=== PATIENT | female | born 1965 | race Caucasian/White ===

== ENCOUNTER 2016-09-01 09:49 | Emergency (ER) | payer OTHER ==
[2016-09-01 09:58] VITALS: BP 122/64
--- NOTE | 2016-09-01 11:17 | UC ---
Complaint Female HPI - HPI Summary HPI Summary: complaint of burning pain with urination that started yesterday this morning it has worsenend increase in frequency and urgency of urination denies fever and chills denies back painand abdominla pin took some azo yesterday with relief - History Of Current Complaint Chief Complaint: UCGU Stated Complaint: URINARY ISSUE Time Seen by Provider: 09/01/16 11:06 Hx Obtained From: Patient Hx Last Menstrual Period: 02/11/16 - Allergies/Home Medications Allergies/Adverse Reactions: Allergies Allergy/AdvReac Type Severity Reaction Status Date / Time Clavulanic Acid Allergy Intermediate See Comment Verified 08/28/16 11:25 ENVIRONMENTAL/SEASONAL Allergy STUFFINESS Uncoded 08/28/16 11:25 HAYFEVER PMH/Surg Hx/FS Hx/Imm Hx Previously Healthy: Yes Endocrine History Of: Denies: Diabetes, Thyroid Disease Cardiovascular History Of: Denies: Cardiac Disorders, Hypertension, Pacemaker/ICD Respiratory History Of: Denies: COPD, Asthma GI/ History Of: Denies: Ulcer, Renal Disease Neurological History Of: Reports: Migraine - ONCE MONTHLY Cancer History Of: Denies: Breast Cancer - Surgical History Surgical History: Yes Surgery Procedure, Year, and Place: MYOMECTOMY [place] 2006. RIGHT Shoulder surgery 04/2012. Right hip replacement 2013, LEFT ROTATOR CUFF SURGERY 01/2016 - Family History Known Family History: Positive: Hypertension Negative: Cardiac Disease, Diabetes - Social History Occupation: Employed Full-time Lives: With Family Alcohol Use: Rare Alcohol Amount: One glass of wine Substance Use Type: None Smoking Status (MU): Former Smoker Type: Cigarettes Have You Smoked in the Last Year: No When Did the Patient Quit Smoking/Using Tobacco: Quit Review of Systems Constitutional: Negative Skin: Negative Eyes: Negative ENT: Negative Respiratory: Negative Cardiovascular: Negative Gastrointestinal: Negative Genitourinary: Dysuria, Frequency, Urgency Motor: Negative Neurovascular: Negative Musculoskeletal: Negative Neurological: Negative Psychological: Negative All Other Systems Reviewed And Are Negative: Yes Physical Exam Triage Information Reviewed: Yes Appearance: No Pain Distress, Well-Nourished Vital Signs: Initial Vital Signs Temp 97.9 F 09/01/16 09:54 Pulse 96 09/01/16 09:54 Resp 18 09/01/16 09:54 BP 122/64 09/01/16 09:54 Pulse Ox 100 09/01/16 09:54 Vital Signs Reviewed: Yes Eyes: Positive: Conjunctiva Clear ENT: Positive: Pharynx normal, TMs normal Neck: Positive: Supple Respiratory: Positive: Lungs clear, Normal breath sounds, No respiratory distress, No accessory muscle use Cardiovascular: Positive: RRR, No Murmur, Pulses Normal Abdomen Description: Positive: Nontender, No Organomegaly, Soft. Negative: CVA Tenderness (R), CVA Tenderness (L), Distended, Guarding Bowel Sounds: Positive: Present Musculoskeletal Exam: Normal Neurological Exam: Normal Psychological Exam: Normal Skin Exam: Normal Complaint Female Dx - Differential Dx/Diagnosis Differential Diagnosis/HQI/PQRI: Ureteral Stone, Urinary Tract Infection Provider Diagnoses: UTI Discharge - Discharge Plan Condition: Stable Disposition: HOME Prescriptions: Nitrofurantoin Monohyd Macro [Macrobid] 100 mg PO BID #10 cap Phenazopyridine TAB* [Pyridium 100 mg TAB*] 100 mg PO TID #6 tab Patient Education Materials: Urinary Tract Infection in Women (ED) Referrals: Lamin Gonzales MD [Primary Care Provider] - Additional Instructions: Please start antibiotic and pyridium as directed Increase fluids and rest Take acetaminophen or ibuprofen for fever or pain Please review your discharge instructions. If your symptoms do not improve please call your primary care provider or return to urgent care.
== END 2016-09-01 11:27 | disposition home or self-care (01) ==
LOC: UCEAST 09:49
DX: N39.0 Urinary tract infection, site not specified (principal); B96.89 Other specified bacterial agents as the cause of diseases classified elsewhere
CPT/HCPCS: 81003; 87086; 99212; G0463

== ENCOUNTER 2016-09-15 10:38 | Emergency (ER) | payer OTHER ==
[2016-09-15 10:52] VITALS: BP 88/57
--- NOTE | 2016-09-15 11:33 | UC ---
Complaint Female HPI - HPI Summary HPI Summary: ONSET OF URINARY PAIN, FREQUENCY AND URGENCY LAST NIGHT 9PM. TX WITH MACROBID FOR UTI 2 WEEKS AGO. SX RESOLVED WITH TX BUT RETURNED LAST NIGHT. NO FEVER, NAUSEA OR FLANK PAIN. TOOK AZO THIS MORNING. OF NOTE THE URINE CX FROM 09/01 DID NOT GROW ANY SIGNIFICANT BACTERIA. - History Of Current Complaint Chief Complaint: UCGU Stated Complaint: URINARY ISSUE Time Seen by Provider: 09/15/16 11:19 Hx Obtained From: Patient Hx Last Menstrual Period: 02/11/16 Onset/Duration: Sudden Onset, Lasting Hours, Still Present Timing: Constant Severity Initially: Moderate Severity Currently: Moderate Pain Intensity: 0 Pain Scale Used: 0-10 Numeric Character: Burning Aggravating Factor(s): Urination Alleviating Factor(s): Nothing Associated Signs And Symptoms: Negative: Fever, Back Pain, Vaginal Bleeding/ Discharge, Vaginal Discharge - Allergies/Home Medications Allergies/Adverse Reactions: Allergies Allergy/AdvReac Type Severity Reaction Status Date / Time Clavulanic Acid Allergy Intermediate See Comment Verified 09/15/16 10:53 ENVIRONMENTAL/SEASONAL Allergy STUFFINESS Uncoded 09/15/16 10:53 HAYFEVER PMH/Surg Hx/FS Hx/Imm Hx Previously Healthy: Yes - Surgical History Surgical History: Yes Surgery Procedure, Year, and Place: MYOMECTOMY [place] 2006. RIGHT Shoulder surgery 04/2012. Right hip replacement 2013, LEFT ROTATOR CUFF SURGERY 01/2016 - Family History Known Family History: Positive: Hypertension Negative: Cardiac Disease, Diabetes - Social History Alcohol Use: Rare Alcohol Amount: One glass of wine Substance Use Type: None Smoking Status (MU): Former Smoker Type: Cigarettes Have You Smoked in the Last Year: No When Did the Patient Quit Smoking/Using Tobacco: Quit Review of Systems Constitutional: Negative Respiratory: Negative Cardiovascular: Negative Gastrointestinal: Abdominal Pain Genitourinary: Dysuria, Frequency, Urgency All Other Systems Reviewed And Are Negative: Yes Physical Exam Triage Information Reviewed: Yes Appearance: Well-Appearing, No Pain Distress, Well-Nourished Vital Signs: Initial Vital Signs Temp 98.9 F 09/15/16 10:49 Pulse 70 09/15/16 10:49 Resp 18 09/15/16 10:49 BP 88/57 09/15/16 10:49 Pulse Ox 99 09/15/16 10:49 Vital Signs Reviewed: Yes Eyes: Positive: Conjunctiva Clear ENT: Positive: Hearing grossly normal Neck: Positive: Supple Respiratory: Positive: No respiratory distress, No accessory muscle use Cardiovascular: Positive: Pulses Normal Abdomen Description: Positive: Soft, Other: - SUPRAPUBIC TTP. Negative: CVA Tenderness (R), CVA Tenderness (L), Distended Musculoskeletal: Positive: No Edema Neurological: Positive: Alert Psychological: Positive: Age Appropriate Behavior Skin: Negative: rashes Complaint Female Dx - Course Course Of Treatment: URINE DIP NOT DONE DUE TO TREATMENT WITH AZO. WILL SEND FOR CX. - Differential Dx/Diagnosis Provider Diagnoses: CYSTITIS Discharge - Discharge Plan Condition: Stable Disposition: HOME Prescriptions: Sulfamethox/Trimethoprim DS* [Bactrim DS 800/160 TAB*] 1 tab PO BID #10 tab Patient Education Materials: Urinary Tract Infection in Women (ED) Referrals: Lamin Gonzales MD [Primary Care Provider] - If Needed Additional Instructions: WILL TREAT YOUR SYMPTOMS WITH BACTRIM AND SEND YOUR URINE FOR REPEAT CULTURE. WE WILL CALL YOU IF WE NEED TO MODIFY YOUR TREATMENT. STAY HYDRATED.
--- NOTE | 2016-09-17 07:40 | UC ---
Progress - Progress Note Progress Note: Urine Cx No growth. Patient Rx Bactrim. Nurse to call patient and inform of no growth and to F/U with PMD if Sx continue or worse. Patient can stop taking the Bactrim.
== END 2016-09-15 11:40 | disposition home or self-care (01) ==
LOC: UCEAST 10:38
DX: N30.90 Cystitis, unspecified without hematuria (principal); Z87.891 Personal history of nicotine dependence
CPT/HCPCS: 87086; 87798; 99212; G0463

== ENCOUNTER 2017-03-25 17:26 | Emergency (ER) | payer OTHER ==
[2017-03-25 18:08] VITALS: BP 110/67
--- NOTE | 2017-03-25 18:43 | UC ---
Complaint Female HPI - HPI Summary HPI Summary: Pain burning frequency urgency no fevers chills nausea vomiting or back pain - History Of Current Complaint Hx Obtained From: Patient Hx Last Menstrual Period: 02/11/16 ?: No Onset/Duration: Sudden Onset, Lasting Days - 1, Still Present Timing: Constant Severity Initially: Moderate Severity Currently: Moderate Pain Scale Used: 0-10 Numeric Character: Burning Aggravating Factor(s): Urination Alleviating Factor(s): Nothing Associated Signs And Symptoms: Positive: Negative <Julieth Jauregui - Last Filed: 03/25/17 18:43> <Lisa Gold - Last Filed: 03/25/17 21:27> - History Of Current Complaint Chief Complaint: UCGI Stated Complaint: PAIN WITH URINATION Time Seen by Provider: 03/25/17 18:37 - Allergies/Home Medications Allergies/Adverse Reactions: Allergies Allergy/AdvReac Type Severity Reaction Status Date / Time Clavulanic Acid Allergy Intermediate See Comment Verified 03/25/17 18:08 ENVIRONMENTAL/SEASONAL Allergy STUFFINESS Uncoded 03/25/17 18:08 HAYFEVER PMH/Surg Hx/FS Hx/Imm Hx Previously Healthy: No - osteoarthritis Neurological History: Migraine - Surgical History Surgical History: Yes Surgery Procedure, Year, and Place: MYOMECTOMY [place] 2006. RIGHT Shoulder surgery 04/2012. Right hip replacement 2013, LEFT ROTATOR CUFF SURGERY 01/2016 - Family History Known Family History: Positive: Hypertension Negative: Cardiac Disease, Diabetes - Social History Occupation: Works From/At Home Lives: With Family Alcohol Use: Weekly Alcohol Amount: 1-2 drinks weekly Substance Use Type: None Substance Use Comment - Amount & Last Used: Medicinal Marijuana Smoking Status (MU): Former Smoker Type: Cigarettes Have You Smoked in the Last Year: No When Did the Patient Quit Smoking/Using Tobacco: Quit Household Exposure Type: Cigarettes - Immunization History Most Recent Influenza Vaccination: UTD <Julieth Jauregui - Last Filed: 03/25/17 18:43> Review of Systems Constitutional: Negative Skin: Negative Eyes: Negative ENT: Negative Respiratory: Negative Cardiovascular: Negative Gastrointestinal: Negative Genitourinary: Dysuria, Frequency, Urgency Motor: Negative Neurovascular: Negative Musculoskeletal: Negative Neurological: Negative Psychological: Negative Is Patient Immunocompromised?: No All Other Systems Reviewed And Are Negative: Yes <Julieth Jauregui - Last Filed: 03/25/17 18:43> Physical Exam Triage Information Reviewed: Yes Appearance: Well-Appearing, No Pain Distress, Well-Nourished Vital Signs: Initial Vital Signs Temp 97.6 F 03/25/17 18:04 Pulse 76 03/25/17 18:04 Resp 18 03/25/17 18:04 BP 110/67 03/25/17 18:04 Pulse Ox 100 03/25/17 18:04 Vital Signs Reviewed: Yes Eye Exam: Normal Eyes: Positive: Conjunctiva Clear ENT Exam: Normal ENT: Positive: Normal ENT inspection, Hearing grossly normal, Pharynx normal. Negative: Nasal congestion, Nasal drainage, TMs normal, Tonsillar swelling, Trismus, Muffled voice, Hoarse voice, Dental tenderness, Sinus tenderness Dental Exam: Normal Neck exam: Normal Neck: Positive: Supple, Nontender, No Lymphadenopathy Respiratory Exam: Normal Respiratory: Positive: Chest non-tender, Lungs clear, Normal breath sounds, No respiratory distress, No accessory muscle use Cardiovascular Exam: Normal Cardiovascular: Positive: RRR, No Murmur, Pulses Normal, Brisk Capillary Refill Abdominal Exam: Normal Abdomen Description: Positive: Nontender, No Organomegaly, Soft. Negative: CVA Tenderness (R), CVA Tenderness (L) Bowel Sounds: Positive: Present Musculoskeletal Exam: Normal Musculoskeletal: Positive: Strength Intact, ROM Intact, No Edema Neurological Exam: Normal Neurological: Positive: Alert, Muscle Tone Normal Psychological Exam: Normal Psychological: Negative: Normal Response To Family Skin Exam: Normal <Julieth Jauregui - Last Filed: 03/25/17 18:43> Vital Signs: Initial Vital Signs Temp 97.6 F 03/25/17 18:04 Pulse 76 03/25/17 18:04 Resp 18 03/25/17 18:04 BP 110/67 03/25/17 18:04 Pulse Ox 100 03/25/17 18:04 <Lisa Gold - Last Filed: 03/25/17 21:27> Complaint Female Dx - Course Course Of Treatment: Increase fluids keflex, increase fluids follow with Dr. Valdez prn - Differential Dx/Diagnosis Provider Diagnoses: UTI <Julieth Jauregui - Last Filed: 03/25/17 18:43> Discharge <Julieth Jauregui - Last Filed: 03/25/17 18:43> <Lisa Gold - Last Filed: 03/25/17 21:27> - Discharge Plan Condition: Stable Disposition: HOME Prescriptions: Cephalexin CAP* [Keflex CAP*] 500 mg PO BID #20 cap Patient Education Materials: Urinary Tract Infection in Women (ED) Referrals: Lamin Valdez MD [Primary Care Provider] - If Needed Attestation Statement User Type: Provider - I was available for consult. This patient was seen by the ABA. The patient was not presented to, seen by, or examined by me. -Karla <Lisa Gold - Last Filed: 03/25/17 21:27>
== END 2017-03-25 18:57 | disposition home or self-care (01) ==
LOC: UCEAST 17:26
DX: N39.0 Urinary tract infection, site not specified (principal); Z72.89 Other problems related to lifestyle; Z87.891 Personal history of nicotine dependence; F12.90 Cannabis use, unspecified, uncomplicated
CPT/HCPCS: 81003; 87077; 87086; 87186; 99212; G0463

== ENCOUNTER 2017-04-28 09:26 | Emergency (ER) | payer OTHER ==
--- NOTE | 2017-04-28 11:18 | RAD ---
INDICATION: Right knee pain COMPARISON: None TECHNIQUE: AP, lateral, tunnel, and sunrise views were obtained. FINDINGS: The bony structures, joint spaces, and soft tissues are normal for age. IMPRESSION: NO ACUTE BONY FINDINGS.
[2017-04-28 11:50] VITALS: BP 98/57
--- NOTE | 2017-04-28 19:01 | UC ---
Amanda Kiran Julia, scribed for Jesus Alberto Beck MD on 04/28/17 at 1043 . Lower Extremity/Ankle HPI - HPI Summary HPI Summary: This patient is a 51 year old F presenting to [facility] with a chief complaint of slightly lateral R knee pain at joint line since twisting it last evening while playing basketball. Patient reports mild swelling. Patient denies falling. The patient rates the pain 3/10 while sitting and a 10/10 while walking. Patient has history of OA and hip replacement surgery in R hip. - History of Current Complaint Chief Complaint: UCLowerExtremity Stated Complaint: KNEE INJURY Time Seen by Provider: 04/28/17 10:25 Hx Obtained From: Patient Hx Last Menstrual Period: 02/11/16 Onset/Duration: Sudden Onset, Lasting Hours Pain Intensity: 3 - 10 while walking Pain Scale Used: 0-10 Numeric - Allergies/Home Medications Allergies/Adverse Reactions: Allergies Allergy/AdvReac Type Severity Reaction Status Date / Time Clavulanic Acid Allergy Intermediate See Comment Verified 04/28/17 10:16 ENVIRONMENTAL/SEASONAL Allergy STUFFINESS Uncoded 04/28/17 10:16 HAYFEVER PMH/Surg Hx/FS Hx/Imm Hx Previously Healthy: Yes - Surgical History Surgical History: Yes Surgery Procedure, Year, and Place: MYOMECTOMY [place] 2006. RIGHT Shoulder surgery 04/2012. 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 Alcohol Use: Rare Alcohol Amount: 1-2 drinks weekly Substance Use Type: None Substance Use Comment - Amount & Last Used: Medicinal Marijuana Smoking Status (MU): Former Smoker Type: Cigarettes Have You Smoked in the Last Year: No When Did the Patient Quit Smoking/Using Tobacco: Quit Household Exposure Type: Cigarettes - Immunization History Most Recent Influenza Vaccination: UTD Review of Systems Constitutional: Negative Musculoskeletal: Edema - mild at R knee, Other: - R knee pain All Other Systems Reviewed And Are Negative: Yes Physical Exam Triage Information Reviewed: Yes Appearance: Well-Appearing, No Pain Distress Vital Signs: Initial Vital Signs Temp 96.4 F 04/28/17 10:11 Pulse 67 04/28/17 10:11 Resp 18 04/28/17 10:11 BP 97/63 04/28/17 10:11 Vital Signs Reviewed: Yes Eyes: Positive: Conjunctiva Clear Dental Exam: Normal Neck exam: Normal Respiratory Exam: Normal Respiratory: Positive: Chest non-tender, Lungs clear, Normal breath sounds Cardiovascular Exam: Normal Cardiovascular: Positive: RRR, No Murmur Abdomen Description: Positive: Nontender Musculoskeletal: Positive: ROM Intact, Other: - mild effusion right knee, no redness, no bruising. Patellar tendon is non tender. No clicking to the knee, no popliteal tenderness. Neurological: Positive: Alert, Muscle Tone Normal Psychological: Positive: Normal Response To Family, Age Appropriate Behavior Skin Exam: Normal Diagnostics - Radiology R Knee XR Radiology Interpretation Completed By: Radiologist - NO ACUTE BONY FINDINGS. ED Physician has reviewed this report. Lower Extremity Course/Dx - Course Course Of Treatment: 51 yr old with internal derangement knee. Plan DC home knee immoblizer, crutches she already has. referral to ortho. - Differential Dx/Diagnosis Provider Diagnoses: internal derangement of knee Discharge - Discharge Plan Condition: Good Disposition: HOME Prescriptions: Ibuprofen TAB* [Motrin TAB* 600 MG] 600 mg PO Q6H PRN #20 tab PRN Reason: Pain Patient Education Materials: Knee Pain (ED) Referrals: Lamin Gonzales MD [Primary Care Provider] - Maninder Sandoval MD [Medical Doctor] - The documentation as recorded by the Amanda cheng Julia accurately reflects the service I personally performed and the decisions made by , Jesus Alberto Beck MD.
== END 2017-04-28 11:49 | disposition home or self-care (01) ==
LOC: UCEAST 09:26
DX: M23.91 Unspecified internal derangement of right knee (principal); Z87.891 Personal history of nicotine dependence; X50.1XXA Overexertion from prolonged static or awkward postures, initial encounter; Y93.67 Activity, basketball; Y92.9 Unspecified place or not applicable
CPT/HCPCS: 99212; G0463

== ENCOUNTER 2017-06-19 08:48 | Emergency (ER) | payer OTHER ==
[2017-06-19 09:00] VITALS: BP 95/57
--- NOTE | 2017-06-19 09:35 | UC ---
Respiratory Complaint HPI - HPI Summary HPI Summary: 51 yo WF c/o cough with productive sputum x 2 weeks associated with worsening maxillary sinus pains - History of Current Complaint Chief Complaint: UCRespiratory Stated Complaint: SINUS ISSUE Time Seen by Provider: 06/19/17 09:28 Hx Obtained From: Patient Hx Last Menstrual Period: 02/11/16 Onset/Duration: Lasting Days, Lasting Weeks Severity Initially: Moderate Severity Currently: Moderate Pain Intensity: 3 - Allergies/Home Medications Allergies/Adverse Reactions: Allergies Allergy/AdvReac Type Severity Reaction Status Date / Time amoxicillin [From Augmentin] Allergy liver Verified 06/19/17 08:56 failure clavulanic acid Allergy liver Verified 06/19/17 08:56 [From Augmentin] failure ENVIRONMENTAL/SEASONAL Allergy STUFFINESS Uncoded 04/28/17 10:16 HAYFEVER PMH/Surg Hx/FS Hx/Imm Hx Previously Healthy: Yes - Surgical History Surgical History: Yes Surgery Procedure, Year, and Place: MYOMECTOMY [place] 2006. RIGHT Shoulder surgery 04/2012. Right hip replacement 2013, LEFT ROTATOR CUFF SURGERY 01/2016 - Family History Known Family History: Positive: Hypertension Negative: Cardiac Disease, Diabetes - Social History Alcohol Use: Rare Alcohol Amount: 1-2 drinks weekly Substance Use Type: None Substance Use Comment - Amount & Last Used: Medicinal Marijuana Smoking Status (MU): Former Smoker Type: Cigarettes Have You Smoked in the Last Year: No When Did the Patient Quit Smoking/Using Tobacco: Quit Household Exposure Type: Cigarettes - Immunization History Most Recent Influenza Vaccination: UTD Review of Systems Constitutional: Negative Skin: Negative Eyes: Negative ENT: Negative, Sinus Congestion, Sinus Pain/Tenderness Respiratory: Cough Cardiovascular: Negative Gastrointestinal: Negative Genitourinary: Negative Motor: Negative Neurovascular: Negative Musculoskeletal: Negative Neurological: Negative Psychological: Negative All Other Systems Reviewed And Are Negative: Yes Physical Exam Triage Information Reviewed: Yes Vital Signs: Initial Vital Signs Temp 35.9 C 06/19/17 08:57 Pulse 83 06/19/17 08:57 Resp 15 06/19/17 08:57 BP 95/57 06/19/17 08:57 Pulse Ox 100 06/19/17 08:57 Eye Exam: Normal ENT Exam: Normal ENT: Positive: Sinus tenderness Dental Exam: Normal Neck exam: Normal Neck: Positive: 1 Respiratory Exam: Normal Respiratory: Positive: Rhonchi Cardiovascular Exam: Normal Abdominal Exam: Normal Musculoskeletal Exam: Normal Neurological Exam: Normal Psychological Exam: Normal Skin Exam: Normal UC Diagnostic Evaluation - Laboratory O2 Sat by Pulse Oximetry: 100 Respiratory Course/Dx - Differential Dx/Diagnosis Provider Diagnoses: acute bronchitis. sinusitis Discharge - Discharge Plan Condition: Stable Disposition: HOME Prescriptions: Azithromycin TAB* [Zithromax TAB (Z-EZRA) 250 mg #6 tabs] 2 tab PO .TODAY, THEN 1 DAILY #1 ezra Patient Education Materials: Acute Bronchitis (ED) Referrals: Lamin Gonzales MD [Primary Care Provider] - Additional Instructions: take meds as directed, f/u w/ PCP if symptoms persist
== END 2017-06-19 09:35 | disposition home or self-care (01) ==
LOC: UCEAST 08:48
DX: J20.9 Acute bronchitis, unspecified (principal); J32.9 Chronic sinusitis, unspecified; Z87.891 Personal history of nicotine dependence; Z88.3 Allergy status to other anti-infective agents
CPT/HCPCS: 99212; G0463

== ENCOUNTER 2018-06-27 12:56 | Emergency (ER) | payer OTHER ==
[2018-06-27 13:03] VITALS: BP 111/53
--- NOTE | 2018-06-27 13:17 | UC ---
Throat Pain/Nasal [place] HPI - HPI Summary HPI Summary: patient has had on and off throat pain for the past 2 weeks, only on the left side - History of Current Complaint Chief Complaint: UCRespiratory Stated Complaint: throat pain Time Seen by Provider: 06/27/18 13:02 Hx Obtained From: Patient Hx Last Menstrual Period: 02/11/16 ?: No Onset/Duration: Sudden Onset, Lasting Weeks Severity: Mild Pain Intensity: 3 Cough: Nonproductive Associated Signs & Symptoms: Positive: Dysphagia - Allergies/Home Medications Allergies/Adverse Reactions: Allergies Allergy/AdvReac Type Severity Reaction Status Date / Time amoxicillin [From Augmentin] Allergy liver Verified 06/27/18 13:03 failure clavulanic acid Allergy liver Verified 06/27/18 13:03 [From Augmentin] failure ENVIRONMENTAL/SEASONAL Allergy STUFFINESS Uncoded 06/27/18 13:03 HAYFEVER PMH/Surg Hx/FS Hx/Imm Hx Previously Healthy: Yes - Surgical History Surgical History: Yes Surgery Procedure, Year, and Place: MYOMECTOMY [place] 2006. RIGHT Shoulder surgery 04/2012. Right hip replacement 2013, LEFT ROTATOR CUFF SURGERY 01/2016 - Family History Known Family History: Positive: Hypertension Negative: Cardiac Disease, Diabetes - Social History Alcohol Use: Weekly Alcohol Amount: 3/week Substance Use Type: None Substance Use Comment - Amount & Last Used: Medicinal Marijuana Smoking Status (MU): Former Smoker Type: Cigarettes Have You Smoked in the Last Year: No When Did the Patient Quit Smoking/Using Tobacco: Quit Household Exposure Type: Cigarettes - Immunization History Most Recent Influenza Vaccination: UTD Review of Systems All Other Systems Reviewed And Are Negative: Yes Constitutional: Positive: Negative Skin: Positive: Negative Eyes: Positive: Negative ENT: Positive: Sore Throat Respiratory: Positive: Negative Cardiovascular: Positive: Negative Gastrointestinal: Positive: Negative Genitourinary: Positive: Negative Motor: Positive: Negative Neurovascular: Positive: Negative Musculoskeletal: Positive: Negative Neurological: Positive: Negative Psychological: Positive: Negative Is Patient Immunocompromised?: No Physical Exam Triage Information Reviewed: Yes Appearance: Well-Appearing, Well-Nourished, Pain Distress Vital Signs: Initial Vital Signs Temp 97.1 F 06/27/18 13:00 Pulse 107 06/27/18 13:00 Resp 18 06/27/18 13:00 BP 111/53 06/27/18 13:00 Pulse Ox 100 06/27/18 13:00 Vital Signs Reviewed: Yes Eye Exam: Normal ENT: Positive: Pharyngeal erythema, Tonsillar swelling - with noted large tonsilolith Dental Exam: Normal Neck exam: Normal Respiratory Exam: Normal Cardiovascular Exam: Normal Abdominal Exam: Normal Bowel Sounds: Positive: Present Musculoskeletal Exam: Normal Neurological Exam: Normal Psychological Exam: Normal Skin Exam: Normal Throat Pain/Nasal Course/Dx - Course Course Of Treatment: hx obtained, exam performed ,meds reviewed, removed tonsil stone with tongue depressor with immediate relief. - Differential Dx/Diagnosis Differential Diagnosis/HQI/PQRI: Influenza, Laryngitis, Otitis Media, Pharyngitis, Sinusitis, Tonsillitis, URI Provider Diagnosis: Tonsil stone Discharge - Sign-Out/Discharge Documenting (check all that apply): Patient Departure All imaging exams completed and their final reports reviewed: No Studies - Discharge Plan Condition: Stable Disposition: HOME Referrals: Lamin Gonzales MD [Primary Care Provider] - Additional Instructions: 1. gargle with salt water a few times to day to clean out the pocket of the tonsils - Billing Disposition and Condition Condition: STABLE Disposition: Home - Attestation Statements Provider Attestation: I was available for consult. This patient was seen by the ABA. The patient was not presented to, seen by, or examined by me. -Karla
== END 2018-06-27 13:17 | disposition home or self-care (01) ==
LOC: UCEAST 12:56
DX: J35.8 Other chronic diseases of tonsils and adenoids (principal); Z88.0 Allergy status to penicillin; Z91.09 Other allergy status, other than to drugs and biological substances; Z87.891 Personal history of nicotine dependence
CPT/HCPCS: 99211; G0463

== ENCOUNTER 2019-04-13 10:49 | Observation (INO) | payer OTHER ==
--- NOTE | 2019-04-06 15:55 | HP ---
HISTORY AND PHYSICAL: DATE OF ADMISSION: 04/13/19 PROVIDER: Dr. Glenis Javier.* (DICTATED BY GUSTAVO SIMENTAL) HISTORY OF PRESENT ILLNESS: Ms. Sequeira is a 53-year-old female with 4 years of left buttock and groin pain. She reports that walking more than 2 blocks and prolonged standing increase her pain. She has failed conservative management with anti- inflammatories, heat, ice, rest and home exercise program without relief. She would like to proceed with left total hip arthroplasty at this time. PAST MEDICAL HISTORY: 1. Raynaud's disease. 2. Microscopic colitis. 3. Osteoarthritis. PAST SURGICAL HISTORY: 1. Right total hip arthroplasty. 2. Rotator cuff repair bilaterally. MEDICATIONS: 1. Diclofenac sodium 1%. 2. Tramadol 50 mg. 3. Comig. 4. Ibuprofen. 5. Estrogen juice weekly. ALLERGIES: 1. AUGMENTIN causes drug-induced hepatitis. 2. CLINDAMYCIN. FAMILY HISTORY: Maternal - cancer and hypertension. SOCIAL HISTORY: The patient lives with her spouse. 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 No tobacco or recreational drug use. She drinks about 3 alcoholic beverages per week consisting of 1 glass of wine per night. Normally, she is very active, right-hand dominant. REVIEW OF SYSTEMS: General: The patient denies any fevers, chills, or night sweats. No known anesthesia problems. HEENT: The patient denies any headaches or lightheadedness. Cardiothoracic: The patient denies any chest pain or heart palpitations. Pulmonary: Denies any shortness of breath with exertion or chronic cough. GI: The patient denies any nausea, vomiting, diarrhea or constipation. : The patient denies any nocturia, urinary frequency or urgency. MSK: The patient denies any chronic or intermittent back pain. Neuro: The patient denies any paresthesias, numbness or seizures. Integument: The patient denies any abrasions, lesions, rashes, lumps, or open sores. PHYSICAL EXAMINATION GENERAL: The patient is alert and oriented x3 with appropriate mood and affect , appropriately dressed and hygiene. HEENT: Normocephalic, atraumatic. Hearing and vision are grossly intact. PULMONARY: Lungs are clear to auscultation bilaterally with no wheezes, rales or rhonchi. CARDIO: Regular rate and rhythm. Normal S1 and S2. No appreciable S3 or S4. No murmurs, rubs or gallops. MSK: Left lower extremity: Inspection of the left hip reveals no erythema or ecchymosis. Skin is warm, dry and intact. Range of motion of the left hip is 100 degrees of flexion, 0 degrees of internal rotation with pain and 40 degrees of external rotation with pain. Active hip flexion and abduction although some groin pain. Distally, no edema, varicosities, or hyperreflexia. She has full sensation intact to light touch in all nerve distributions and a 2+ palpable dorsalis pedis pulse. ASSESSMENT: Left hip end-stage osteoarthritis. PLAN: To the OR for a left total hip arthroplasty to be performed by Dr. Glenis Javier on 04/13/19. The risks and complications were reviewed with the patient and a signed understanding was obtained. She will follow up 10 to 14 days postoperatively for suture removal. GUSTAVO SIMENTAL [id number]/[facility] #: [id number] [place]
[~2019-04-13 10:49] MED LIST: Acetaminophen TAB* 325 MG PO ONE; Buffered Lidocaine 1% SYRIN* 1 ML/SYRINGE INTRADERM ONE; HYDROmorphone INJ1* 1 MG/ML SYRINGE IV PRN; Lactated Ringers 1000 ML Bag* 1,000 ML IV SCH; Midazolam* 1 MG/ML 2 ML VIAL (2 MG) ONE; Naloxone* 0.4 MG/ML 1 ML VIAL IV PRN; Tranexamic Acid 1,000 MG in NS 0.9% 50 ML IV ONE; VANCOMYCIN 1000 MG IV ONE; celeCOXIB CAP* 200 MG PO ONE; fentaNYL* 50 MCG/ML 2 ML VIAL (100 MCG VIAL) ONE
[2019-04-13] MEDS ORDERED: Acetaminophen TAB* 325 MG ONE (11:35)
[2019-04-13] MEDS ORDERED: celeCOXIB CAP* 200 MG ONE (11:35)
[2019-04-13] MEDS ORDERED: Dexamethasone IV* 4 MG/ML 1 ML (4 MG) ONE (13:24)
[2019-04-13] MEDS ORDERED: EPHEDrine (Pressors)* 50 MG/ML VIAL ONE (13:24)
[2019-04-13] MEDS ORDERED: Ondansetron INJ* 2 MG/ML VIAL ONE (13:24)
[2019-04-13] MEDS ORDERED: Bupivacaine 0.5% SDV PF* 30ML VIAL ONE (13:24)
[2019-04-13] MEDS ORDERED: Propofol* 500 MG/50 ML BTL ONE (13:24)
[2019-04-13] MEDS ORDERED: Midazolam* 1 MG/ML 2 ML VIAL (2 MG) ONE (13:41)
[2019-04-13] MEDS ORDERED: Phenylephrine 40 MCG/ML SYRINGE ONE (14:01)
[2019-04-13] MEDS ORDERED: Propofol* 10 MG/ML 20 ML BTL ONE ×2 (14:32)
[2019-04-13] MEDS ORDERED: Ondansetron TAB* 4 MG PO PRN (15:33)
[2019-04-13] MEDS ORDERED: Morphine INJ* 2 MG/ML 1 ML SYRINGE (TWO MG - NEW SYRINGE VERSION) IV PRN (15:33)
[2019-04-13] MEDS ORDERED: Polyethylene Glycol 3350* 17 GM PACKET PO PRN (15:33)
[2019-04-13] MEDS ORDERED: oxyCODONE TAB* 5 MG TAB PO PRN (15:33)
[2019-04-13] MEDS ORDERED: Ondansetron ODT TAB* 4 MG PO PRN (15:33)
[2019-04-13] MEDS ORDERED: traMADol TAB* 50 MG PO PRN (15:33)
[2019-04-13] MEDS ORDERED: diPHENhydraMINE IV* 50 MG/ML 1 ml VIAL (BENADRYL) IV PRN (15:33)
[2019-04-13] MEDS ORDERED: Ondansetron INJ* 2 MG/ML VIAL IV PRN (15:33)
[2019-04-13] MEDS ORDERED: Magnesium Hydroxide LIQ* 30 ML UDC PO PRN (15:33)
[2019-04-13] MEDS ORDERED: diPHENhydraMINE PO* 25 MG PO PRN (15:33)
[2019-04-13] MEDS ORDERED: Lactated Ringers 1000 ML Bag* 1,000 ML IV SCH (16:00)
[2019-04-13] MEDS ORDERED: HYDROmorphone INJ1* 1 MG/ML SYRINGE ONE (16:03)
[2019-04-13] MEDS: oxyCODONE/Acetamin 5/325 MG* TAB PO PRN (17:53)
[2019-04-13] MEDS: Cyclobenzaprine TAB* 10 MG PO PRN (18:42)
--- NOTE | 2019-04-13 19:05 | OP ---
Operative Report - Blank - Operative Report Date of Operation: 04/13/19 Note: XIANG MAYO 1965 Date Of Surgery: 04/13/19 Glenis Javier MD Mysql Dba: Wiley CHEN did help throughout the procedure with preparation of the hip, wound retraction, manipulation of the hip, and wound closure. Anesthesiologist: Dr. 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 Hardware used: This is uncemented Ata total hip arthroplasty hardware for the femur a size 3 accolade II with 127 neck angle femoral component, for the acetabulum a size 46C trident II tritanium cluster hole shell with one 15mm screw, for the insert a size 32C insert, and for the femoral head a size 32 +4 V40 femoral head. Brief history/Indication: XIANG MAYO was known in clinic and had a history of severe left hip pain. She failed conservative treatment with anti-inflammatories , pain pills, intra-articular injections and physical therapy. She elected to undergo left total hip arthroplasty due to continued pain and decreased quality of life. Radiographs showed severe end stage osteoarthritis of the hip with bone on bone contact. Informed consent was obtained from the patient. She understood the risks of surgery included but were not limited to: bleeding, infection, damage to nearby structures, intraoperative fracture, nerve palsy, failure of the hardware, early loosening, stiffness or loss of motion, dislocation, leg length discrepancy, anesthesia complications, stroke, heart attack, blood clot and . She wished to proceed. Intra-Operative findings: Intraoperatively the patient was noted to have severe loss of cartilage of the acetabulum and femoral head. She had a severely dysplastic shallow acetabulum with minimal posterior and superio wall. Description of the Procedure: XIANG MAYO was identified in the preanesthesia unit. Her left hip was marked as the correct operative side. Informed consent was signed and placed in the chart. The patient was taken to the operating room and placed under anesthesia without complication. A devi catheter was placed. The patient was placed on the peg board with all bony prominences well padded. The left lower extremity was prepped and draped in the usual sterile fashion. Preoperative time-out was made to correctly identify the patient, side and site. Appropriate intraoperative antibiotics were given within one hour of incision. A standard posterior incision was made and carried sharply down to the lateral fascia. A new 10 blade was used to make an incision in the fascia in line with the skin incision. A charnley retractor was placed. The piriformis and conjoined tendons were identified and elevated off the posterolateral femur using electrocautery. These were tagged with number 5 Ethibond. Next electrocautery was used to make a posterolateral capsular flap and this was tagged with number 5 Ethibonds. The hip was carefully dislocated. Lesser trochanter to the center of the femoral head was measured at 52 mm. The oscillating saw was used to make the femoral neck cut. The femoral head was carefully removed. The femur was retracted anteriorly and the acetabular retractors were placed. Long-handled knife was used to sharply remove any remaining labrum from the acetabular rim. The acetabulum was sequentially reamed up to a size 46. A bleeding subchondral bone bed was obtained. A trial liner was placed and had excellent fit and stability. A 46C cup with 15mm screw was placed and had excellent stability with appropriate anteversion and abduction angle. A size 32C polyethylene liner was impacted into the acetabular shell. The liner was checked for stability and was stable. Next attention was turned to preparation of the femoral canal. A canal finder was used to enter the proximal femur. The femoral canal was sequentially broached up to a size 3 femoral broach trial. A trial neck and 32 + 4 trial femoral head was chosen. Lesser trochanter to center of the femoral head measurement was satisfactory. The hip was reduced and taken through a range of motion. The hip was stable in all positions with good soft tissue tension and appropriate leg lengths. The hip was dislocated and all trials were removed. The final implant chosen was a accolade II size 3 stem. This stem was impacted into the femoral canal without difficulty. The stem was stable with appropriate anteversion. The femoral head chosen was a 32 + 4 head. The head was impacted onto the femoral neck without difficulty. The final lesser trochanter to center of the femoral head measurement was satisfactory. The hip was reduced and taken through a range of motion. The hip was stable in all positions with good soft tissue tension and appropriate leg lengths. The hip was copiously irrigated with sterile saline. The previously tagged capsule and tendons were repaired to the posterolateral femur through two trochanteric drill holes. The lateral fascia layer was closed using number 1 vicryls. The rest of the incision was closed in a layered fashion using 0 and 2-0 vicryls. The skin was closed using 3-0 monocryl suture and Dermabond. Sterile adaptic, 4x4s and paper tape was used to cover the incision. The patients anesthesia was reversed without difficulty. She was taken to the PACU in stable condition. Intended weight-bearing will be as tolerated with posterior hip precautions.
[2019-04-13] MEDS: ceFAZolin 1 GM ADVAN(*) 1 GM in NS 0.9% 50 ML* 50 ML IVPB SCH (21:22)
[2019-04-13] MEDS: Acetaminophen TAB* 325 MG PO SCH (21:25)
[2019-04-13] MEDS: Magnesium Hydroxide LIQ* 30 ML UDC PO SCH (21:27)
[2019-04-13] MEDS: Docusate CAP* 100 MG PO SCH (21:27)
[2019-04-14] MEDS: oxyCODONE/Acetamin 5/325 MG* TAB PO PRN ×3 (05:03→17:01)
[2019-04-14] MEDS: ceFAZolin 1 GM ADVAN(*) 1 GM in NS 0.9% 50 ML* 50 ML IVPB SCH ×2 (05:04→12:36)
[2019-04-14] MEDS: Acetaminophen TAB* 325 MG PO SCH ×2 (05:14→13:15)
[2019-04-14 05:23] LABS: Hematocrit 28 % (35-47); Hemoglobin 9.7 g/dL (12.0-16.0); Mean Platelet Volume 7.5 fL (7.4-10.4); Platelet Count 246 10^3/uL (150-450)
[2019-04-14 05:41] LABS: BUN/Creatinine Ratio 23.9 (8-20); Calcium 9.1 mg/dL (8.6-10.3); EGFR Non-African American 91.7 (>60); Potassium 4.1 mmol/L (3.5-5.0)
[2019-04-14] MEDS ORDERED: Vitamin THERAPEUTIC TAB PO SCH (09:00)
[2019-04-14] MEDS ORDERED: NS 0.9% 500 ML* 500 ML IV ONE (09:00)
[2019-04-14] MEDS ORDERED: Apixaban* 2.5 MG TAB PO SCH (09:00)
[2019-04-14] MEDS: Docusate CAP* 100 MG PO SCH (09:01)
[2019-04-14] MEDS: Magnesium Hydroxide LIQ* 30 ML UDC PO SCH (09:01)
[2019-04-14] MEDS: Cyclobenzaprine TAB* 10 MG PO PRN (10:20)
--- NOTE | 2019-04-14 10:30 | DS ---
Orthopedic Discharge Summary - Discharge Summary Date of Admission:04/13/19 Date of Discharge: 04/14/19 Date of Surgery: 04/13/19 Attending Orthopedic Provider: Dr Javier Pre-operative Diagnosis: left hip osteoarthritis Operative Procedure: left total hip replacement Disposition of Patient: home with outpatient physical therapy, no home nursing Condition of Patient: stable History: XIANG MAYO is a 53 year old F with years of increasingly severe left hip pain. Patient has failed conservative management and has elected to undergo a left total hip replacement Hospital Course: XIANG was admitted to [facility] on 04/13/19. Patient underwent a left total hip replacement without complication followed by a brief recovery in PACU and transfer to the Short Stay Surgical Unit in stable condition. physical therapy and occupational therapy also participated in this patients care. Post-op day 1: Patient seen at bedside. SHe feels well without CP , SOB, dizziness or nausea. BP low, NS 500 ml bolus started. Patient was alert and in no acute distress. Dressing was clean, dry and intact. Operative extremity dorsiflexion and plantarflexion intact, sensation intact to light touch distally, DP2+. Prior to DC: dressing was changed, incision was clean, dry and intact. Patient was deemed to be medically and orthopedically stable for discharge. Physical therapy goals were met. Home Medications Medication Instructions Recorded Confirmed Type ZOLMitriptan Zomig 2.5 mg PO DAILY PRN 11/19/17 04/13/19 History Estradiol VAG CM (NF) [Estrace VAG 1 mg VAGINAL .2XPER WEEK 03/29/19 04/13/19 History CM (NF)] Acetaminophen TAB* [Tylenol TAB*] 975 mg PO Q8HR tab 04/14/19 Rx Apixaban* [Eliquis*] 2.5 mg PO BID #60 tab 04/14/19 Rx Docusate CAP* [Colace Cap*] 100 mg PO BID PRN #90 cap 04/14/19 Rx oxyCODONE/Acetamin 5/325 MG* 2 tab PO Q4H PRN #70 tab MDD 10 04/14/19 Rx [Percocet 5/325 TAB*] Discharge Instructions following Orthopedic Surgery: Activity: * Weight Bearing as tolerated * Continue physical therapy and occupational therapy exercises as shown * Start outpatient physical therapy Hip replacements: Continue Hip Precautions- do not cross legs or bend greater than 90 degrees/squat Wound care: * OK to shower on post-op day 3, no bathing, swimming, or submerging wound. * Use gentle soap, pat dry. Cover with gauze, EMMA wrap or tape. Call Orthopedic office for: * Increased drainage * Redness * Increased pain * Fever Go to ER with shortness of breath or chest pain. Diet: * Regular diet * Increase fluids and fiber to prevent constipation. * Continue to use stool softeners, call office if no bowel motion within 48 hours. Medications See Home Medication List in your packet for medications that you should take after discharge. DVT Prophylaxis: Will increase bleeding tendency Eliquis Dosin.5 mg, 1 tab every 12 hours x 30 days Pain Control: Percocet Dosin/325 mg 1tab for moderate and 2 tabs for severe pain by mouth every 4 hours as needed. Maximum of 10 tabs per day. Hold for sedation and wean off as soon as pain allows Please note that Percocet contains Tylenol (acetaminophen). Maximum daily dose of Tylenol is 4000 mg from all sources. Antibiotics are required prior to any dental work. FOLLOW UP: Follow up with [Yaya] Within 10-14 days, call for appointment Please call our office with any questions or concerns ([phone]) [facility] [place]
[2019-04-14 17:00] VITALS: BP 110/68
[2019-04-15] MEDS ORDERED: Bisacodyl SUPP* 10 MG SUPP PR PRN (15:33)
== END 2019-04-14 17:28 | disposition home or self-care (01) ==
LOC: OR 10:49 → SSU 15:33 → INTOOBSV 15:33
PROVIDERS: ADMIT Orthopaedic Surgery Adult Reconstructive Orthopaedic Surgery; ATTEND Orthopaedic Surgery Adult Reconstructive Orthopaedic Surgery
DX: M16.12 Unilateral primary osteoarthritis, left hip (principal); M25.552 Pain in left hip; I73.00 Raynaud's syndrome without gangrene; K52.839 Microscopic colitis, unspecified; Z79.899 Other long term (current) drug therapy; Z87.891 Personal history of nicotine dependence
CPT/HCPCS: 36415; 72170; 80048; 85014; 85018; 85049; 86850; 86900; 86901; 96374; 96375; A9270-GY; C1713; C1776; G0378; J0690; J1100; J1170; J2250; J2270; J2405; J2704; J3010; J3370; J3490

== ENCOUNTER 2019-05-28 16:54 | Emergency (ER) | payer OTHER ==
--- OUTSIDE RECORDS SUMMARY | 2019-05-28 17:47 | XMS REPORT | Continuity of Care Document ---
:1965 External Reference #:[id number] Author Name Glenis Javier M.D. (transmitted by agent of provider Mary Dillard) Address [address] [place] [address] Problems Active Problems Provider Date Localized, primary osteoarthritis of the pelvic Glenis Javier M.D. Onset: 04/2018 region and thigh Social History Type Date Description Comments Sex Unknown ETOH Use Occasionally consumes alcohol Tobacco Use Start: Unknown End: Patient is a former smoker Unknown Smoking Status Reviewed: 05/17/19 Patient is a former smoker Exercise Type/Frequency Exercises regularly Allergies, Adverse Reactions, Alerts Active Allergies Reaction Severity Comments Date Augmentin Severe liver failure 08/05/2018 Medications Active Medications SIG Qnty Indications Ordering Date Provider Percocet 1 by mouth every 60tabs Glenis Javier, 04/30/2019 5-325mg Tablets 8 hours as needed M.D. pain Cyclobenzaprine HCL take 1 tab by 90tabs Glenis Javier, 04/15/2019 10mg mouth 2-3 times a M.D. Tablets day as needed Diclofenac Sodium Apply A Small Unknown 1% Gel Amount To Affected Area S Four Times A Day Tramadol HCL Take One Tablet Unknown 50mg Tablets By Mouth Twice A Day as Needed Maximum Daily Dose 2 Zomig as needed for Unknown headaches Ibuprofen as needed Unknown Eliquis take one tab by Unknown 2.5mg Tablets mouth twice daily x 4 weeks History Medications Keflex 1 by mouth 4 28caps Z47.1 Glenis Javier, 05/10/2019 - 500mg times a day for M.D. 05/16/2019 Capsules 7 days Immunizations Description No Information Available Vital Signs Date Vital Result Comment 05/17/2019 8:20am Height 68 inches 5'8" Weight 140.00 lb Heart Rate 128 /min BP Systolic 112 mmHg BP Diastolic 62 mmHg Body Temperature 97.9 F Pain Level 3 BMI (Body Mass Index) 21.3 kg/m2 05/10/2019 9:52am Height 68 inches 5'8" Weight 140.00 lb Heart Rate 73 /min BP Systolic 122 mmHg BP Diastolic 78 mmHg Body Temperature 97.3 F Pain Level 2 BMI (Body Mass Index) 21.3 kg/m2 Results Test Acquired Date Facility Test Result H/L Range Note Type & Screen 04/13/2019 [facility] Patient Blood A Positive [address] [place] [address] [phone] Antibody Screen NEGATIVE Urinalysis Profile 03/29/2019 [facility] Urine Color Yellow [address] [place] [address] [phone] Urine Appearance Cloudy Urine Specific [place] 1.029 Normal 1.010-1.030 Urine pH 5.0 Normal 5-9 Urine Urobilinogen Negative Negative Urine Ketones 1+ Abnormal Negative Urine Protein Negative Negative Urine Leukocytes Negative Negative Urine Blood Negative Negative * * Abnormal Negative 2 Urine Nitrite Negative Negative Urine Bilirubin Negative Negative Urine Glucose Negative Negative Inr/Protime 03/29/2019 [facility] Inr 0.95 Normal 0.82-1.[address] [place] [address] [phone] Laboratory test 03/29/2019 [facility] Partial 34.4 Normal 26.0 -38.[address] [place] [address] Time PTT [phone] CBC Auto Diff 03/29/2019 [facility] White Blood 7.6 10^3/uL Normal 3.5-10.[address] [place] [address] [phone] Red Blood Count 3.98 10^6/uL Normal 3.70-4.87 Hemoglobin 12.3 g/dL Normal 12.0-16.0 Hematocrit 37 % Normal 35-47 Mean Corpuscular Volume 94 fL Normal 80-97 Mean Corpuscular Hemoglobin 31 pg Normal 27-31 Mean Corpuscular HGB Conc 33 g/dL Normal 31-36 Red Cell Distribution Width 13 % Normal 10-15 Platelet Count 317 10^3/uL Normal 150-450 Mean Platelet Volume 7.6 fL Normal 7.4-10.4 Abs Neutrophils 3.6 10^3/uL Normal 1.5-7.7 Abs Lymphocytes 3.2 10^3/uL Normal 1.0-4.8 Abs Monocytes 0.4 10^3/uL Normal 0-0.8 Abs Eosinophils 0.3 10^3/uL Normal 0-0.6 Abs Basophils 0.1 10^3/uL Normal 0-0.2 Abs Nucleated RBC 0.0 10^3/uL Granulocyte % 47.9 % Lymphocyte % 41.8 % Monocyte % 5.4 % Eosinophil % 4.1 % Basophil % 0.8 % Nucleated Red Blood Cells % 0.0 Comp Metabolic 03/29/2019 [facility] Sodium 139 mmol/L Normal 135-[address] [place] [address] [phone] Potassium 4.0 mmol/L Normal 3.5-5.0 Chloride 103 mmol/L Normal 101-111 Co2 Carbon Dioxide 28 mmol/L Normal 22-32 Anion Gap 8 mmol/L Normal 2-11 Glucose 82 mg/dL Normal 70-100 Blood Urea Nitrogen 23 mg/dL Normal 6-24 Creatinine 0.80 mg/dL Normal 0.51-0.95 BUN/Creatinine Ratio 28.8 High 8-20 Calcium 9.9 mg/dL Normal 8.6-10.3 Total Protein 7.2 g/dL Normal 6.4-8.9 Albumin 4.4 g/dL Normal 3.2-5.2 Globulin 2.8 g/dL Normal 2-4 Albumin/Globulin Ratio 1.6 Normal 1-3 Total Bilirubin 0.50 mg/dL Normal 0.2-1.0 Alkaline Phosphatase 60 U/L Normal 34-104 Alt 14 U/L Normal 7-52 Ast 22 U/L Normal 13-39 Egfr Non- 74.7 >60 Egfr 90.4 >60 4 Urine Culture And 03/29/2019 [facility] Urine Culture SEE RESULT [address] [place] [address] [phone] 1 PAIN IN LEFT HIP, UNILATERAL PRIMARY OSTEOARTHRITI 2 *Ascorbic acid is present which may interfere with detection of blood. 3 Standard intensity warfarin therapeutic range: 2.0-3.0 High intensity warfarin therapeutic range: 2.5-3.5 4 Because ethnic data is not always readily available, this report includes an eGFR for both -Americans and non- Americans. The National Kidney Disease Education Program (NKDEP) does not endorse the use of the MDRD equation for patients that are not between the ages of 18 and 70, are , have extremes of body size, muscle mass, or nutritional status, or are non- or non-. According to the National Kidney Foundation, irrespective of diagnosis, the stage of the disease is based on the level of kidney function: Stage Description GFR(mL/min/1.73 m(2)) 1 Kidney damage with normal or decreased GFR 90 2 Kidney damage with mild decrease in GFR 60-89 3 Moderate decrease in GFR 30-59 4 Severe decrease in GFR 15-29 5 Kidney failure <15 (or dialysis) 5 SEE RESULT BELOW Name: NIDIA MAYO : [address]: Glenis Javier MD Acct: [id number] Unit: [id number] AGE: 53 Location: [facility] Re03/29/19 SEX: F Status: REG REF SPEC: [id number] SIDDHARTHA: 03/29/19-[address]: Glenis Javier MD REQ: [id number] RECD: 03/29/19 STATUS: COMP _ SOURCE: URINE SPDESC: ORDERED: Urine Culture QUERIES: Urine Source: Clean Catch Procedure Result Reported Site Urine Culture Final 03/30/19- 1019 ML No Growth (<1,000 CFU/mL) * ML - Main Lab . END OF REPORT DEPARTMENT OF PATHOLOGY, [address] [place] [address] Douglas Wilson M.D. Director [facility] # [id number] Procedures Date Code Description Status 04/13/2019 THR Total Hip Replacement Completed 04/13/2019 THR Total Hip Replacement Completed 04/13/2019 THR Total Hip Replacement Completed 03/29/2019 60587 EKG, Interpretation Only Completed Medical Devices Description No Information Available Encounters Description No Information Available Assessments Date Code Description Provider 05/17/2019 Z47.1 Aftercare following joint replacement Glenis Javier M.D. surgery 05/17/2019 M16.12 Unilateral primary osteoarthritis, left Glenis Javier M.D. hip 05/17/2019 Z96.642 Presence of left artificial hip joint Glenis Javier M.D. 05/10/2019 Z47.1 Aftercare following joint replacement Glenis Javier M.D. surgery 05/10/2019 M16.12 Unilateral primary osteoarthritis, left Glenis Javier M.D. hip 05/05/2019 Z47.1 Aftercare following joint replacement Glenis Javier M.D. surgery 05/05/2019 Z96.642 Presence of left artificial hip joint Glenis Javier M.D. 04/28/2019 M16.12 Unilateral primary osteoarthritis, left Glenis Javier M.D. hip 04/28/2019 Z47.1 Aftercare following joint replacement Glenis Javier M.D. surgery 04/28/2019 Z96.642 Presence of left artificial hip joint Glenis Javier M.D. 04/13/2019 M16.12 Unilateral primary osteoarthritis, left Adi Yang PA-C hip 04/13/2019 M16.12 Unilateral primary osteoarthritis, left Glenis Javier M.D. hip 03/29/2019 R00.1 Bradycardia, unspecified Werner Bonds M.D. 03/29/2019 M25.552 Pain in left hip Glenis Javier M.D. 03/29/2019 M16.12 Unilateral primary osteoarthritis, left Glenis Javier M.D. hip 01/25/2019 M25.552 Pain in left hip Glenis Javier M.D. 01/25/2019 M16.12 Unilateral primary osteoarthritis, left Glenis Javier M.D. hip Plan of Treatment Future Appointment(s):05/31/2019 10:15 am - [facility] Zlkgor[facility]/01/2020 - Glenis Javier M.D.Z47.1 Aftercare following joint replacement surgeryFollow up:Follow up: 2 hptphK10.12 Unilateral primary osteoarthritis, left hipZ96.642 Presence of left artificial hip joint Functional Status Description No Information Available Mental Status Description No Information Available Referrals Description No Information Available
--- OUTSIDE RECORDS SUMMARY | 2019-05-28 17:47 | XMS REPORT | Continuity of Care Document ---
:1965 External Reference #:[id number] Author Name Werner Bonds M.D. (transmitted by agent of provider Reina Dillard ) Address [address] [facility] [address] [place] [address] Problems Active Problems Provider Date Localized, primary osteoarthritis of the pelvic Glenis Joan Javier Onset: 04/2018 region and thigh Social History Type Date Description Comments Sex Unknown ETOH Use Occasionally consumes alcohol Tobacco Use Start: Unknown End: Patient is a former smoker Unknown Smoking Status Reviewed: 03/29/19 Patient is a former smoker Exercise Type/Frequency Exercises regularly Allergies, Adverse Reactions, Alerts Active Allergies Reaction Severity Comments Date Augmentin Severe liver failure 08/05/2018 Medications Active Medications SIG Qnty Indications Ordering Provider Date Diclofenac Sodium Apply A Small Unknown 1% Amount To Affected Gel Area S Four Times A Day Tramadol HCL Take One Tablet By Unknown 50mg Mouth Twice A Day Tablets as Needed Maximum Daily Dose 2 Zomig Unknown Ibuprofen Unknown Immunizations Description No Information Available Vital Signs Date Vital Result Comment 03/29/2019 8:36am Height 68.25 inches 5'8.25" Weight 140.50 lb Heart Rate 111 /min BP Systolic 118 mmHg BP Diastolic 67 mmHg Respiratory Rate 18 /min Body Temperature 98.5 F Pain Level 4 6-7 by end of the day O2 % BldC Oximetry 98 % BMI (Body Mass Index) 21.2 kg/m2 08/05/2018 10:11am Height 68.25 inches 5'8.25" Weight 146.00 lb Heart Rate 60 /min BP Systolic 108 mmHg BP Diastolic 62 mmHg Pain Level 4 BMI (Body Mass Index) 22.0 kg/m2 Results Test Acquired Date Facility Test Result H/L Range Note Urinalysis Profile 03/29/2019 [facility] Urine Color Yellow [address] [place] [address] [phone] Urine Appearance Cloudy Urine Specific [place] 1.029 Normal 1.010-1.030 Urine pH 5.0 Normal 5-9 Urine Urobilinogen Negative Negative Urine Ketones 1+ Abnormal Negative Urine Protein Negative Negative Urine Leukocytes Negative Negative Urine Blood Negative Negative * * Abnormal Negative 1 Urine Nitrite Negative Negative Urine Bilirubin Negative Negative Urine Glucose Negative Negative Inr/Protime 03/29/2019 [facility] Inr 0.95 Normal 0.82-1.[address] [place] [address] [phone] Laboratory test 03/29/2019 [facility] Partial 34.4 Normal 26.0 -38.[address] [place] [address] Time PTT [phone] CBC Auto Diff 03/29/2019 [facility] White Blood 7.6 10^3/uL Normal 3.5-10.[address] [place] [address] [phone] Red Blood Count 3.98 10^6/uL Normal 3.70-4.87 [...] Blood Cells % 0.0 Comp Metabolic 03/29/2019 [facility] Sodium 139 mmol/L Normal 135-[address] [place] [address] [phone] Potassium 4.0 mmol/L Normal 3.5-5.0 Chloride 103 [...] Egfr Non- 74.7 >60 Egfr 90.4 >60 3 Urine Culture And 03/29/2019 [facility] Urine Culture SEE RESULT [address] [place] [address] [phone] 1 *Ascorbic acid is present which may interfere with detection of blood. 2 Standard intensity warfarin therapeutic range: 2.0-3.0 High intensity warfarin therapeutic range: 2.5-3.5 3 Because ethnic data is not always readily [...] 15-29 5 Kidney failure <15 (or dialysis) 4 SEE RESULT BELOW Name: NIDIA MAYO : [address]: Glenis Javier MD Acct: [id number] Unit: [id number] AGE: 53 Location: [facility] Re03/29/19 SEX: F Status: REG REF SPEC: [id number] SIDDHARTHA: 03/29/19-[address]: Glenis Javier MD REQ: [id number] RECD: 03/29/19 STATUS: COMP _ SOURCE: URINE SPDESC: ORDERED: Urine Culture QUERIES: Urine Source: Clean Catch Procedure Result Reported Site Urine Culture Final 03/30/19- 1019 ML No Growth (<1,000 CFU/mL) * ML - Main Lab . END OF REPORT DEPARTMENT OF PATHOLOGY, [address] [place] [address] Douglas Wilson M.D. Director [facility] # [id number] Procedures Description No Information Available Medical Devices Description No Information Available Encounters Description No Information Available Assessments Date Code Description Provider 03/29/2019 M25.552 Pain in left hip Glenis Javier M.D. 03/29/2019 M16.12 Unilateral primary osteoarthritis, left hip Glenis Javier M.D. 01/25/2019 M25.552 Pain in left hip Glenis Javier M.D. 01/25/2019 M16.12 Unilateral primary osteoarthritis, left hip Glenis Javier M.D. Plan of Treatment Future Appointment(s):04/28/2019 9:45 am - Glenis Javier M.D. at [facility]04/13/2019 5:30 pm - Adi Yang PA-C at [facility] at Twuatd3504/13/2019 5:30 pm - GUSTAVO Michelle at [facility] at Fvwcfh8004/13/2019 5:30 pm - Glenis Javier M.D. at [facility] at Ahgivb9603/29/2019 - Glenis Javier M.D.M25.552 Pain in left hipFollow up:Follow up: to the OR6.12 Unilateral primary osteoarthritis, left hip Functional Status Description No Information Available Mental Status Description No Information Available Referrals Description No Information Available
--- OUTSIDE RECORDS SUMMARY | 2019-05-28 17:47 | XMS REPORT | Continuity of Care Document ---
:1965 External Reference #:[id number] Author Name Glenis Javier M.D. (transmitted by agent of provider Mary Dillard) Address [address] [place] [address] Problems Active Problems Provider Date Localized, primary osteoarthritis of the pelvic Glenis Javier M.D. Onset: 04/2018 region and thigh Social History Type Date Description Comments Sex Unknown ETOH Use Occasionally consumes alcohol Tobacco Use Start: Unknown End: Patient is a former smoker Unknown Smoking Status Reviewed: 05/05/19 Patient is a former smoker Exercise Type/Frequency [...] Tablets mouth twice daily x 4 weeks Immunizations Description No Information Available Vital Signs Date Vital Result Comment 05/05/2019 10:02am Height 68 inches 5'8" Weight 140.00 lb Heart Rate 76 /min BP Systolic Sitting 100 mmHg BP Diastolic Sitting 64 mmHg Respiratory Rate 16 /min Pain Level 2 O2 % BldC Oximetry 97 % BMI (Body Mass Index) 21.3 kg/m2 04/28/2019 9:56am Height 68 inches 5'8" Weight 140.00 lb Heart Rate 79 /min Body Temperature 96.9 F O2 % BldC Oximetry 99 % BMI (Body Mass Index) 21.3 kg/m2 Results Test Acquired Date Facility Test Result H/L Range Note Type & Screen 04/13/2019 [facility] Patient Blood A Positive [address] [place] [address] [phone] Antibody Screen NEGATIVE Urinalysis Profile 03/29/2019 [facility] Urine Color Yellow [address] [place] [address] [phone] Urine Appearance Cloudy Urine Specific [place] 1.029 Normal 1.010-1.030 Urine pH 5.0 Normal 5-9 Urine Urobilinogen Negative Negative Urine Ketones 1+ Abnormal Negative Urine Protein Negative Negative Urine Leukocytes Negative Negative Urine Blood Negative Negative * * Abnormal Negative 2 Urine Nitrite Negative Negative Urine Bilirubin Negative Negative Urine Glucose Negative Negative Inr/Protime 03/29/2019 [facility] Inr 0.95 Normal 0.82-1.[address] [place] [address] [phone] Laboratory test 03/29/2019 [facility] Partial 34.4 Normal 26.0 -38.[address] [place] [address] Time PTT [phone] CBC Auto Diff 03/29/2019 [facility] White Blood 7.6 10^3/uL Normal 3.5-10.[address] [place] [address] [phone] Red Blood Count 3.98 10^6/uL Normal 3.70-4.87 [...] Blood Cells % 0.0 Comp Metabolic 03/29/2019 [facility] Sodium 139 mmol/L Normal 135-[address] [place] [address] [phone] Potassium 4.0 mmol/L Normal 3.5-5.0 Chloride 103 [...] 90.4 >60 4 Urine Culture And 03/29/2019 [facility] Urine Culture SEE RESULT [address] [place] [address] [phone] 1 PAIN IN LEFT HIP, UNILATERAL PRIMARY [...] [address]: Glenis Javier MD Acct: [id number] Unit: [id number] AGE: 53 Location: [facility] Re03/29/19 SEX: F Status: REG REF SPEC: [id number] SIDDHARTHA: 03/29/19-[address]: Glenis Javier MD REQ: [id number] RECD: 03/29/19 STATUS: COMP _ SOURCE: URINE SPDESC: ORDERED: Urine Culture QUERIES: Urine Source: Clean Catch Procedure Result Reported Site Urine Culture Final 03/30/19- 1019 ML No Growth (<1,000 CFU/mL) * ML - Main Lab . END OF REPORT DEPARTMENT OF PATHOLOGY, [address] [place] [address] Douglas Wilson M.D. Director [facility] # [id number] Procedures Date Code Description Status 04/13/201928493 THR Total Hip Replacement Completed 04/13/201994900 THR Total Hip Replacement Completed 04/13/201998806 THR Total Hip Replacement Completed 03/29/2019 65591 EKG, Interpretation Only Completed Medical Devices Description No Information Available Encounters Description No Information Available Assessments Date Code Description Provider 04/28/2019 M16.12 Unilateral primary osteoarthritis, left Glenis Javier M.D. hip 04/28/2019 Z47.1 Aftercare following joint replacement Glenis Javier M.D. surgery 04/13/2019 M16.12 Unilateral primary osteoarthritis, left Adi [...] 10:15 am - Glenis Javier M.D. at [facility] Functional Status Description No Information Available Mental Status Description No Information Available Referrals Description No Information Available
--- OUTSIDE RECORDS SUMMARY | 2019-05-28 17:47 | XMS REPORT | Continuity of Care Document ---
:1965 External Reference #:[id number] Author Name Glenis Javier M.D. (transmitted by agent of provider Radha Murphy) Address [address] [place] [address] Problems Active Problems Provider Date Localized, primary osteoarthritis of the pelvic Glenis Javier M.D. Onset: 04/2018 region and thigh Social History Type Date Description Comments Sex Unknown ETOH Use Occasionally consumes alcohol Tobacco Use Start: Unknown End: Patient is a former smoker Unknown Smoking Status Reviewed: 05/10/19 Patient is a former smoker Exercise Type/Frequency Exercises regularly Allergies, Adverse Reactions, Alerts Active Allergies Reaction Severity Comments Date Augmentin Severe liver failure 08/05/2018 Medications Active Medications SIG Qnty Indications Ordering Date Provider Keflex 1 by mouth 4 28caps Z47.1 Glenis Javier, 05/10/2019 500mg Capsules times a day for 7 M.D. days Percocet 1 by mouth every 60tabs Glenis [...] Available Vital Signs Date Vital Result Comment 05/10/2019 9:52am Height 68 inches 5'8" Weight 140.00 lb Heart Rate 73 /min BP Systolic 122 mmHg BP Diastolic 78 mmHg Body Temperature 97.3 F Pain Level 2 BMI (Body Mass Index) 21.3 kg/m2 05/05/2019 10:02am Height 68 inches 5'8" Weight 140.00 lb Heart Rate 76 /min BP Systolic Sitting 100 mmHg BP Diastolic Sitting 64 mmHg Respiratory Rate 16 /min Pain Level 2 O2 % BldC Oximetry 97 % BMI (Body Mass Index) 21.3 kg/m2 Results Test Acquired Date Facility Test Result H/L Range Note Type & Screen 04/13/2019 [facility] Patient Blood A Positive [address] [place] [address] [phone] Antibody Screen NEGATIVE Urinalysis Profile 03/29/2019 [facility] Urine Color Yellow [address] [place] [address] [phone] Urine Appearance Cloudy Urine Specific [place] 1.029 Normal 1.010-1.030 Urine pH 5.0 Normal 5-9 Urine Urobilinogen Negative Negative Urine Ketones 1+ Abnormal Negative Urine Protein Negative Negative Urine Leukocytes Negative Negative Urine Blood Negative Negative * * Abnormal Negative 2 Urine Nitrite Negative Negative Urine Bilirubin Negative Negative Urine Glucose Negative Negative Inr/Protime 03/29/2019 [facility] Inr 0.95 Normal 0.82-1.[address] [place] [address] [phone] Laboratory test 03/29/2019 [facility] Partial 34.4 Normal 26.0 -38.[address] [place] [address] Time PTT [phone] CBC Auto Diff 03/29/2019 [facility] White Blood 7.6 10^3/uL Normal 3.5-10.[address] [place] [address] [phone] Red Blood Count 3.98 10^6/uL Normal 3.70-4.87 [...] Blood Cells % 0.0 Comp Metabolic 03/29/2019 [facility] Sodium 139 mmol/L Normal 135-[address] [place] [address] [phone] Potassium 4.0 mmol/L Normal 3.5-5.0 Chloride 103 [...] 90.4 >60 4 Urine Culture And 03/29/2019 [facility] Urine Culture SEE RESULT [address] [place] [address] [phone] 1 PAIN IN LEFT HIP, UNILATERAL PRIMARY [...] [address]: Glenis Javier MD Acct: [id number] Unit: [id number] AGE: 53 Location: [facility] Re03/29/19 SEX: F Status: REG REF SPEC: [id number] SIDDHARTHA: 03/29/19-[address]: Glenis Javier MD REQ: [id number] RECD: 03/29/19 STATUS: COMP _ SOURCE: URINE SPDESC: ORDERED: Urine Culture QUERIES: Urine Source: Clean Catch Procedure Result Reported Site Urine Culture Final 03/30/19- 1019 ML No Growth (<1,000 CFU/mL) * ML - Main Lab . END OF REPORT DEPARTMENT OF PATHOLOGY, [address] [place] [address] Douglas Wilson M.D. Director [facility] # [id number] Procedures Date Code Description Status 04/13/2019 THR Total Hip Replacement Completed 04/13/2019 THR Total Hip Replacement Completed 04/13/2019 THR Total Hip Replacement Completed 03/29/2019 85079 EKG, Interpretation Only Completed Medical Devices Description No Information Available Encounters Description No Information Available Assessments Date Code Description Provider 05/10/2019 Z47.1 Aftercare following joint replacement Glenis Javier M.D. surgery 05/10/2019 M16.12 Unilateral primary osteoarthritis, left Glenis Javier M.D. hip 05/05/2019 Z47.1 Aftercare following joint replacement Glenis Javier M.D. surgery 04/28/2019 M16.12 Unilateral primary osteoarthritis, left Glenis Javier M.D. hip 04/28/2019 Z47.1 Aftercare following joint replacement Glenis Javier M.D. surgery 04/13/2019 M16.12 Unilateral primary osteoarthritis, left Adi Yang, PA-[place] hip 04/13/2019 M16.12 Unilateral primary osteoarthritis, left [...] 10:15 am - Glenis Javier M.D. at [facility] at Qdylga9405/10/2019 - Glenis Javier M.D.Z47.1 Aftercare following joint replacement surgeryNew Medication:Keflex 500 mg - 1 by mouth 4 times a day for 7 daysFollow up:Follow up: 1 weekM16.12 Unilateral primary osteoarthritis, left hip Functional Status Description No Information Available Mental Status Description No Information Available Referrals Description No Information Available
--- OUTSIDE RECORDS SUMMARY | 2019-05-28 17:47 | XMS REPORT | Continuity of Care Document ---
:1965 External Reference #:[id number] Author Name Glenis Javier M.D. (transmitted by agent of provider Mary Dillard) Address [address] [place] [address] Problems Active Problems Provider Date Localized, primary osteoarthritis of the pelvic Glenis Javier M.D. Onset: 04/2018 region and thigh Social History Type Date Description Comments Sex Unknown ETOH Use Occasionally consumes alcohol Tobacco Use Start: Unknown End: Patient is a former smoker Unknown Smoking Status Reviewed: 04/28/19 Patient is a former smoker Exercise Type/Frequency Exercises regularly Allergies, Adverse Reactions, Alerts Active Allergies Reaction Severity Comments Date Augmentin Severe liver failure 08/05/2018 Medications Active Medications SIG Qnty Indications Ordering Date Provider Cyclobenzaprine HCL take 1 tab by 90tabs Glenis Javier, 04/15/2019 10mg mouth 2-3 times M.D. Tablets a day as needed Diclofenac Sodium Apply A Small Unknown 1% Gel Amount To Affected Area S Four Times A Day Tramadol HCL Take One Tablet Unknown 50mg Tablets By Mouth Twice A Day as Needed Maximum Daily Dose 2 Zomig Unknown Ibuprofen Unknown Immunizations Description No Information Available Vital Signs Date Vital Result Comment 04/28/2019 9:56am Height 68 inches 5'8" Weight 140.00 lb Heart Rate 79 /min Body Temperature 96.9 F O2 % BldC Oximetry 99 % BMI (Body Mass Index) 21.3 kg/m2 03/29/2019 8:36am Height 68.25 inches 5'8.25" Weight 140.50 lb Heart Rate 111 /min BP Systolic 118 mmHg BP Diastolic 67 mmHg Respiratory Rate 18 /min Body Temperature 98.5 F Pain Level 4 6-7 by end of the day O2 % BldC Oximetry 98 % BMI (Body Mass Index) 21.2 kg/m2 Results Test Acquired Date Facility Test Result H/L Range Note Type & Screen 04/13/2019 [facility] Patient Blood A Positive [address] [place] [address] [phone] Antibody Screen NEGATIVE Urinalysis Profile 03/29/2019 [facility] Urine Color Yellow [address] [place] [address] [phone] Urine Appearance Cloudy Urine Specific [place] 1.029 Normal 1.010-1.030 Urine pH 5.0 Normal 5-9 Urine Urobilinogen Negative Negative Urine Ketones 1+ Abnormal Negative Urine Protein Negative Negative Urine Leukocytes Negative Negative Urine Blood Negative Negative * * Abnormal Negative 2 Urine Nitrite Negative Negative Urine Bilirubin Negative Negative Urine Glucose Negative Negative Inr/Protime 03/29/2019 [facility] Inr 0.95 Normal 0.82-1.[address] [place] [address] [phone] Laboratory test 03/29/2019 [facility] Partial 34.4 Normal 26.0 -38.[address] [place] [address] Time PTT [phone] CBC Auto Diff 03/29/2019 [facility] White Blood 7.6 10^3/uL Normal 3.5-10.[address] [place] [address] [phone] Red Blood Count 3.98 10^6/uL Normal 3.70-4.87 [...] Blood Cells % 0.0 Comp Metabolic 03/29/2019 [facility] Sodium 139 mmol/L Normal 135-[address] [place] [address] [phone] Potassium 4.0 mmol/L Normal 3.5-5.0 Chloride 103 [...] 90.4 >60 4 Urine Culture And 03/29/2019 [facility] Urine Culture SEE RESULT [address] [place] [address] [phone] 1 PAIN IN LEFT HIP, UNILATERAL PRIMARY [...] [address]: Glenis Javier MD Acct: [id number] Unit: [id number] AGE: 53 Location: [facility] Re03/29/19 SEX: F Status: REG REF SPEC: [id number] SIDDHARTHA: 03/29/19-[address] [facility] DR: Glenis Javier MD REQ: [id number] RECD: 03/29/19 STATUS: COMP _ SOURCE: URINE SPDESC: ORDERED: Urine Culture QUERIES: Urine Source: Clean Catch Procedure Result Reported Site Urine Culture Final 03/30/19- 1019 ML No Growth (<1,000 CFU/mL) * ML - Main Lab . END OF REPORT DEPARTMENT OF PATHOLOGY, [address] [place] [address] Douglas Wilson M.D. Director [facility] # [id number] Procedures Date Code Description Status 04/13/201920801 THR Total Hip Replacement Completed 04/13/201948703 THR Total Hip Replacement Completed 04/13/201913568 THR Total Hip Replacement Completed 03/29/2019 69599 EKG, Interpretation Only Completed Medical Devices Description [...] 10:15 am - Glenis Javier M.D. at [facility]04/28/2019 - Glenis Javier M.D.M16.12 Unilateral primary osteoarthritis, left hipFollow up:Follow up: 4 weeks with sonifC40.1 Aftercare following joint replacement surgery Functional Status Description No Information Available Mental Status Description No Information Available Referrals Description No Information Available
[2019-05-28 17:59] VITALS: BP 99/66
--- NOTE | 2019-05-28 18:14 | UC ---
Complaint Female HPI - HPI Summary HPI Summary: 53-year-old female presenting with urinary frequency, urgency, and dysuria since last night. Patient states she took Azo before coming in for bladder spasms. Denies flank pain. Denies nausea and vomiting. Denies fever and chills. - History Of Current Complaint Chief Complaint: UCGU Stated Complaint: URINARY COMPLAINT Hx Obtained From: Patient Hx Last Menstrual Period: 02/11/16 Pain Intensity: 4 Pain Scale Used: 0-10 Numeric - Allergies/Home Medications Allergies/Adverse Reactions: Allergies Allergy/AdvReac Type Severity Reaction Status Date / Time amoxicillin [From Augmentin] Allergy liver Verified 05/28/19 17:55 failure clavulanic acid Allergy liver Verified 05/28/19 17:55 [From Augmentin] failure clindamycin Allergy See Comment Verified 05/28/19 17:55 Home Medications: Home Medications ZOLMitriptan [Zomig] 2.5 mg PO DAILY PRN 11/19/17 [History Confirmed 05/28/19] Estradiol VAG CM (NF) [Estrace VAG CM (NF)] 1 mg VAGINAL .2XPER WEEK 03/29/19 [ History Confirmed 05/28/19] Ibuprofen 600 mg PO DAILY 05/28/19 [History Confirmed 05/28/19] Pumpkin Seed Extract/Soy Germ [Azo Bladder Control Capsule] 1 tab PO DAILY PRN 05/28/19 [History Confirmed 05/28/19] Sulfamethox/Trimethoprim DS* [Bactrim DS 800/160 TAB*] 1 tab PO BID #10 tab [Rx] Tramadol HCl 1 tab PO DAILY 05/28/19 [History Confirmed 05/28/19] PMH/Surg Hx/FS Hx/Imm Hx - Surgical History Surgical History: Yes Surgery Procedure, Year, and Place: MYOMECTOMY [place] 2006. RIGHT Shoulder surgery 04/2012. Right hip replacement 2013, LEFT ROTATOR CUFF SURGERY 01/2016. left hip replacement 2019 - Family History Known Family History: Positive: Hypertension Negative: Cardiac Disease, Diabetes - Social History Alcohol Use: Occasionally Alcohol Amount: 3-4 GLASSES OF WINE Substance Use Type: None Substance Use Comment - Amount & Last Used: Medicinal Marijuana Smoking Status (MU): Former Smoker Type: Cigarettes Amount Used/How Often: 1/2 PPD X 20 YEARS Have You Smoked in the Last Year: No When Did the Patient Quit Smoking/Using Tobacco: Quit 2004' Household Exposure Type: Cigarettes - Immunization History Most Recent Influenza Vaccination: 2019 Most Recent Pneumonia Vaccination: unknown Review of Systems All Other Systems Reviewed And Are Negative: Yes Constitutional: Positive: Negative Respiratory: Positive: Negative Cardiovascular: Positive: Negative Gastrointestinal: Positive: Other - "bladder spasms". Negative: Vomiting, Nausea Genitourinary: Positive: Dysuria, Frequency, Urgency. Negative: Hematuria Physical Exam - Summary Physical Exam Summary: Vital Signs Reviewed: Yes A+Ox3, no distress Eyes: Conjunctiva Clear ENT: Hearing grossly normal neck: supple Respiratory: Positive: No respiratory distress, No accessory muscle use Cardiovascular: skin color reflect adequate perfusion Abd: abd soft + BS nt/nd no guarding, no CVA tenderness Musculoskeletal Exam: PRADHAN x 4 without difficulty Neurological: Positive: Alert, ambulatory without difficulty Psychological: Positive: Normal Response To Family Skin: Positive: no rash, no ecchymosis Vital Signs: Initial Vital Signs Temp 98.7 F 05/28/19 17:51 Pulse 77 05/28/19 17:51 Resp 18 05/28/19 17:51 BP 99/66 05/28/19 17:51 Pulse Ox 97 05/28/19 17:51 Complaint Female Dx - Course Course Of Treatment: I did not run a urinalysis on the patient, as she has taken Azo today. Urine was sent for culture and I treated patient with Bactrim for UTI based on symptoms. Inform the patient that she would be notified tomorrow if there is any need for change in treatment based on culture results. Instructed to follow up with PCP if symptoms persist or go to ED with any new or worsening symptoms. Patient voiced understanding and agreed with the treatment plan. - Differential Dx/Diagnosis Provider Diagnosis: UTI (urinary tract infection) Discharge ED - Sign-Out/Discharge Documenting (check all that apply): Patient Departure All imaging exams completed and their final reports reviewed: No Studies - Discharge Plan Condition: Stable Disposition: HOME Prescriptions: Sulfamethox/Trimethoprim DS* [Bactrim DS 800/160 TAB*] 1 tab PO BID #10 tab Patient Education Materials: Urinary Tract Infection in Women (ED) Referrals: Lamin Gonzales MD [Primary Care Provider] - If Needed Additional Instructions: Take Bactrim for treatment of your UTI. You may also continue with Azo as needed for symptomatic relief. Increase your fluid intake. Follow up with your PCP if symptoms do not resolve. Return or go to emergency room with any new or worsening symptoms. - Billing Disposition and Condition Condition: STABLE Disposition: Home
== END 2019-05-28 18:38 | disposition home or self-care (01) ==
LOC: UCEAST 16:54
DX: N39.0 Urinary tract infection, site not specified (principal); Z88.1 Allergy status to other antibiotic agents; Z88.0 Allergy status to penicillin; Z87.891 Personal history of nicotine dependence
CPT/HCPCS: 87077; 87086; 87186; 99212; G0463